=== PATIENT | male | born 1990 | race Caucasian/White ===

== ENCOUNTER 2025-02-24 03:47 | Emergency (ER) | payer BC ==
[2025-02-24] MEDS: Propofol 200 MG/20 ML SDV IVPUSH STA (04:35)
[2025-02-24] MEDS: Ketorolac 60 MG/2 ML SDV IVPUSH STA (04:35)
[2025-02-24] MEDS: Ondansetron 4 MG/2 ML SDV IV STA (04:35)
[2025-02-24] MEDS: Acetaminophen/oxyCODONE 325-5 MG Tab PO ONE (04:53)
== END 2025-02-24 05:28 | disposition home or self-care (01) ==
LOC: JD.ED 03:47
DX: S43.005A Unspecified dislocation of left shoulder joint, initial encounter (principal); W10.8XXA Fall (on) (from) other stairs and steps, initial encounter
CPT/HCPCS: 23650; 73020; 73030; 96374; 96375; 99152; 99283; A9270; J1885; J2405; J2704; J7030